=== PATIENT | male | born 1995 | race Hispanic/Latino ===

== ENCOUNTER 2018-12-10 08:58 | Emergency (ER) | payer OTHER ==
--- NOTE | 2018-12-10 10:14 | EDPHYS ---
Physician Documentation [facility] Name: Gordon Oquendo Age: 23 yrs Sex: Male : 1995 Arrival Date: 12/10/2018 Time: 08:58 Bed 11 Private MD: ED Physician Rob Bernstein HPI: 12/10 10:31 This 23 yrs old Male presents to ER via Ambulatory with complaints of Cough, snw Headache, Pain All Over. 10:31 The patient complains of pain to the forehead. The patient describes the headache as a snw pressure. Onset: The symptoms/episode began/occurred gradually. Severity of symptoms: At its worst the pain was moderate. 10:31 The patient or guardian reports airway noise, cough. Onset: The symptoms/episode snw began/occurred 3 day(s) ago. Severity of symptoms: At their worst the symptoms were moderate. It is unknown whether or not the patient has had similar symptoms in the past. The patient has not recently seen a physician. works outdoors. Historical: - Allergies: 09:02 No Known Allergies; ss - Home Meds: 09:02 None [Active]; ss - PMHx: 09:02 None; ss - PSHx: 09:02 None; ss - Immunization history:: Adult Immunizations up to date. - Social history:: Smoking status: Patient uses tobacco products, smokes one-half pack cigarettes per day. - Ebola Screening: : Patient denies exposure to infectious person Patient denies travel to an Ebola-affected area in the 21 days before illness onset. ROS: 10:29 Eyes: Negative for injury, pain, redness, and discharge. snw 10:29 Neck: Negative for injury, pain, and swelling, Cardiovascular: Negative for chest pain, palpitations, and edema. 10:29 Abdomen/GI: Negative for abdominal pain, nausea, vomiting, diarrhea, and constipation, Back: Negative for injury and pain, : Negative for injury, bleeding, discharge, and swelling, MS/Extremity: Negative for injury and deformity, Skin: Negative for injury, rash, and discoloration, Neuro: Negative for headache, weakness, numbness, tingling, and seizure. 10:29 Constitutional: Positive for body aches, malaise. 10:29 ENT: Positive for sore throat. 10:29 Respiratory: Positive for cough, wheezing. Exam: 10:25 Constitutional: This is a well developed, well nourished patient who is awake, alert, snw and in no acute distress. Head/Face: Normocephalic, atraumatic. Eyes: Pupils equal round and reactive to light, extra-ocular motions intact. Lids and lashes normal. Conjunctiva and sclera are non-icteric and not injected. Cornea within normal limits. Periorbital areas with no swelling, redness, or edema. ENT: Nares patent. No nasal discharge, no septal abnormalities noted. Tympanic membranes are mildly erythematous and external auditory canals are clear. Oropharynx with moderate to severe redness, no swelling, or masses, exudates, or evidence of obstruction, uvula midline. Mucous membranes moist. Neck: Trachea midline, no thyromegaly or masses palpated, and no cervical lymphadenopathy. Supple, full range of motion without nuchal rigidity, or vertebral point tenderness. No Meningismus. Chest/axilla: Normal chest wall appearance and motion. Nontender with no deformity. No lesions are appreciated. Cardiovascular: Regular rate and rhythm with a normal S1 and S2. No gallops, murmurs, or rubs. Normal PMI, no JVD. No pulse deficits. Abdomen/GI: Soft, non-tender, with normal bowel sounds. No distension or tympany. No guarding or rebound. No evidence of tenderness throughout. Back: No spinal tenderness. No costovertebral tenderness. Full range of motion. Skin: Warm, dry with normal turgor. Normal color with no rashes, no lesions, and no evidence of cellulitis. MS/ Extremity: Pulses equal, no cyanosis. Neurovascular intact. Full, normal range of motion. Neuro: Awake and alert, GCS 15, oriented to person, place, time, and situation. Cranial nerves II-XII grossly intact. Motor strength 5/5 in all extremities. Sensory grossly intact. Cerebellar exam normal. Normal gait. Psych: Awake, alert, with orientation to person, place and time. Behavior, mood, and affect are within normal limits. 10:25 Respiratory: mild respiratory distress is noted, Respirations: normal, Breath sounds: bronchial sounds, that are moderate, + upper airway congestion. Vital Signs: 09:02 BP 131 / 76; Pulse 92; Resp 16; Temp 98.5(O); Pulse Ox 97% on R/A; Weight 81.65 kg; ss Height 5 ft. 9 in. (175.26 cm); Pain 11/07; 09:02 Body Mass Index 26.58 (81.65 kg, 175.26 cm) ss MDM: 10:08 Patient medically screened. snw 12/10 09:04 Order name: Flu; Complete Time: 10:09 ss 12/10 09:04 Order name: Strep; Complete Time: 10: ss 12/10 09:31 Order name: Throat Culture EDMS Administered Medications: 10:18 Drug: Tussionex Pennkinetic ER 5 ml Route: PO; iw 10:18 Drug: predniSONE 40 mg Route: PO; iw 10:18 Drug: Pepcid 20 mg Route: PO; iw Disposition: 10:40 Co-signature as Attending Physician, Rob Bernstein MD. ma2 Disposition: 12/10/18 10:13 Discharged to Home. Impression: Acute bronchitis. - Condition is Stable. - Discharge Instructions: Acute Bronchitis, Adult, Smoking Hazards, Cough, Adult, Rehydration, Adult. - Prescriptions for Prednisone 20 mg Oral Tablet - take 2 tablet by ORAL route once daily for 5 days; 10 tablet. Albuterol Sulfate 90 mcg/actuation - inhale 1-2 puff by INHALATION route every 4-6 hours; 1 Inhaler. Pepcid 20 mg Oral Tablet - take 1 tablet by ORAL route once daily for 10 days; 10 tablet. - Work release form, Medication Reconciliation Form, Thank You Letter, Antibiotic Education, Prescription Opioid Use form. - Follow up: Private Physician; When: 2 - 3 days; Reason: Recheck today's complaints, Continuance of care, Re-evaluation by your physician. Follow up: Emergency Department; When: As needed; Reason: Worsening of condition. Signatures: Dispatcher [employer] EDGA Autumn Ely FNP-C LOMBARDI DEVELOPER-Brandynw Patricia Rosenbaum RN RN iw Smirch, Shelby, RN RN ss Alzahri, Mohammad, MD MD ma2 Corrections: (The following items were deleted from the chart) 10:29 10:13 12/10/2018 10:13 Discharged to Home. Impression: Acute bronchitis. Condition is iw Stable. Forms are Medication Reconciliation Form, Thank You Letter, Antibiotic Education, Prescription Opioid Use. Follow up: Private Physician; When: 2 - 3 days; Reason: Recheck today's complaints, Continuance of care, Re-evaluation by your physician. Follow up: Emergency Department; When: As needed; Reason: Worsening of condition. snw 10:31 10:25 Constitutional: This is a well developed, well nourished patient who is awake, snw alert, and in no acute distress. Head/Face: Normocephalic, atraumatic. Eyes: Pupils equal round and reactive to light, extra-ocular motions intact. Lids and lashes normal. Conjunctiva and sclera are non-icteric and not injected. Cornea within normal limits. Periorbital areas with no swelling, redness, or edema. ENT: Nares patent. No nasal discharge, no septal abnormalities noted. Tympanic membranes are normal and external auditory canals are clear. Oropharynx with no redness, swelling, or masses, exudates, or evidence of obstruction, uvula midline. Mucous membranes moist. Neck: Trachea midline, no thyromegaly or masses palpated, and no cervical lymphadenopathy. Supple, full range of motion without nuchal rigidity, or vertebral point tenderness. No Meningismus. Chest/axilla: Normal chest wall appearance and motion. Nontender with no deformity. No lesions are appreciated. Cardiovascular: Regular rate and rhythm with a normal S1 and S2. No gallops, murmurs, or rubs. Normal PMI, no JVD. No pulse deficits. Abdomen/GI: Soft, non-tender, with normal bowel sounds. No distension or tympany. No guarding or rebound. No evidence of tenderness throughout. Back: No spinal tenderness. No costovertebral tenderness. Full range of motion. Skin: Warm, dry with normal turgor. Normal color with no rashes, no lesions, and no evidence of cellulitis. MS/ Extremity: Pulses equal, no cyanosis. Neurovascular intact. Full, normal range of motion. Neuro: Awake and alert, GCS 15, oriented to person, place, time, and situation. Cranial nerves II-XII grossly intact. Motor strength 5/5 in all extremities. Sensory grossly intact. Cerebellar exam normal. Normal gait. Psych: Awake, alert, with orientation to person, place and time. Behavior, mood, and affect are within normal limits. snw
--- NOTE | 2018-12-10 10:14 | ER ---
Nurse's Notes [facility] Name: Gordon Oquendo Age: 23 yrs Sex: Male : 1995 Arrival Date: 12/10/2018 Time: 08:58 Bed 11 Private MD: Diagnosis: Acute bronchitis Presentation: 12/10 09:01 Presenting complaint: Patient states: "I have a bad headache, my whole body is aching, ss I have cough congestion and spitting up.". Transition of care: patient was not received from another setting of care. Onset of symptoms was December 07, 2018. Risk Assessment: Do you want to hurt yourself or someone else? Patient reports no desire to harm self or others. Initial Sepsis Screen: Does the patient meet any 2 criteria? No. Patient's initial sepsis screen is negative. Does the patient have a suspected source of infection? No. Patient's initial sepsis screen is negative. Care prior to arrival: None. 09:01 Method Of Arrival: Ambulatory ss 09:01 Acuity: ERNESTO 4 ss Historical: - Allergies: 09:02 No Known Allergies; ss - Home Meds: 09:02 None [Active]; ss - PMHx: 09:02 None; ss - PSHx: 09:02 None; ss - Immunization history:: Adult Immunizations up to date. - Social history:: Smoking status: Patient uses tobacco products, smokes one-half pack cigarettes per day. - Ebola Screening: : Patient denies exposure to infectious person Patient denies travel to an Ebola-affected area in the 21 days before illness onset. Screenin:10 Abuse screen: Denies threats or abuse. Denies injuries from another. Nutritional ss screening: No deficits noted. Tuberculosis screening: Never had TB. Fall Risk None identified. Assessment: 09:10 General: Appears uncomfortable, Behavior is calm, cooperative, Reports feeling ill for ss 12-24 hours. Pain: Complains of pain in general body aches, generalized headache Pain currently is 8 out of 10 on a pain scale. Quality of pain is described as aching. Neuro: Level of Consciousness is awake, alert, obeys commands, Oriented to person, place, time, situation. Cardiovascular: Capillary refill < 3 seconds is brisk in bilateral fingers. Respiratory: Airway is patent Respiratory effort is even, unlabored, Respiratory pattern is regular, symmetrical. GI: Patient currently denies abdominal pain. : No signs and/or symptoms were reported regarding the genitourinary system. Denies burning with urination, urinary frequency. EENT: Nares are clear Oral mucosa is moist. Derm: Skin is intact, is healthy with good turgor, Skin is dry, Skin is pink, warm \\T\\ dry. normal. Musculoskeletal: Circulation, motion, and sensation intact. Range of motion: intact in all extremities, Swelling absent. 10:20 Reassessment: Patient appears in no apparent distress at this time. Patient and/or iw family updated on plan of care and expected duration. Pain level reassessed. Patient is alert, oriented x 3, equal unlabored respirations, skin warm/dry/pink. Vital Signs: 09:02 BP 131 / 76; Pulse 92; Resp 16; Temp 98.5(O); Pulse Ox 97% on R/A; Weight 81.65 kg; ss Height 5 ft. 9 in. (175.26 cm); Pain 8/10; 09:02 Body Mass Index 26.58 (81.65 kg, 175.26 cm) ED Course: 08:58 Patient arrived in ED. as 09:02 Triage completed. ss 09:02 Arm band placed on right wrist. ss 09:10 Patient has correct armband on for positive identification. Bed in low position. Call ss light in reach. 10:05 Betty Temple, LUCIANO is Primary Nurse. ss 10:07 Autumn Ely FNP-C is PHCP. snw 10:07 Rob Bernstein MD is Attending Physician. snw Administered Medications: 10:18 Drug: Tussionex Pennkinetic ER 5 ml Route: PO; iw 10:18 Drug: predniSONE 40 mg Route: PO; iw 10:18 Drug: Pepcid 20 mg Route: PO; iw Outcome: 10:13 Discharge ordered by . snw 10:29 Patient left the ED. Signatures: Autumn Ely FNP-C FNP-Mar Alonso Irene, RN RN Betty Temple RN RN
[2018-12-10] MEDS ORDERED: HYDROCODONE/CHLORPHEN 5 ML/OSYR ONE (10:16)
[2018-12-10] MEDS ORDERED: predniSONE 20 MG TAB ONE (10:17)
[2018-12-10] MEDS ORDERED: FAMOTIDINE 20 MG TAB ONE (10:17)
[2018-12-10 10:36] VITALS: BP 131/76; TEMP 98.5; O2SAT 97
== END 2018-12-10 10:29 | disposition home or self-care (01) ==
LOC: ER 08:58
DX: J20.9 Acute bronchitis, unspecified (principal); F17.210 Nicotine dependence, cigarettes, uncomplicated
CPT/HCPCS: 87070; 87081; 87804 ×2; 99282; J7512

== ENCOUNTER 2019-05-24 17:41 | Emergency (ER) | payer OTHER ==
[2019-05-24] MEDS ORDERED: IBUPROFEN 200 MG TAB PO ONE (17:58)
--- NOTE | 2019-05-24 18:59 | ER ---
Nurse's Notes [facility] Name: Gordon Oquendo Age: 23 yrs Sex: Male : 1995 Arrival Date: 05/24/2019 Time: 17:49 Bed 27 Private MD: Diagnosis: Influenza due to identified novel influenza A virus Presentation: 05/24 17:49 Presenting complaint: Chills, nonproductive cough, sinus congestion, headache, and hb fever x 4 days. TMAX 100.4. Denies N/V/D. Transition of care: patient was not received from another setting of care. Onset of symptoms was May 20, 2019. Risk Assessment: Do you want to hurt yourself or someone else? Patient reports no desire to harm self or others. Care prior to arrival: Medication(s) given: PCN, Tylenol at 1700. 17:49 Method Of Arrival: Ambulatory hb 17:49 Acuity: ERNESTO 3 hb 17:52 Initial Sepsis Screen: Does the patient meet any 2 criteria? Temp <36.0*C (96.8*F)) or hb > 38.3*C (100.9*F). HR > 90 bpm. Yes Does the patient have a suspected source of infection? No. Patient's initial sepsis screen is negative. Historical: - Allergies: 17:50 No Known Allergies; hb - Home Meds: 17:50 None [Active]; hb - PMHx: 17:50 None; hb - PSHx: 17:50 None; hb - Immunization history:: Adult Immunizations up to date. - Coronavirus screen:: The patient has NOT traveled to [place] in the past 14 days. The patient has NOT had contact with known/suspected case of Coronavirus? Proceed with normal triage procedures. - Social history:: Patient/guardian denies using alcohol, street drugs, The patient lives with family, Smoking status: Patient reports the use of cigarette tobacco products, smokes one-half pack cigarettes per day. - Family history:: not pertinent. - Ebola Screening: : No symptoms or risks identified at this time. Screenin:45 Abuse screen: Denies threats or abuse. Denies injuries from another. Nutritional wh screening: No deficits noted. Tuberculosis screening: No symptoms or risk factors identified. Fall Risk None identified. Assessment: 18:45 General: Appears in no apparent distress. Behavior is calm, cooperative, appropriate wh for age. Pain: Complains of pain in generalized body pain. Neuro: Level of Consciousness is awake, alert, obeys commands, Oriented to person, place, time, situation, Appropriate for age. Cardiovascular: Heart tones S1 S2. Respiratory: Reports cough that is congestion Airway is patent Respiratory effort is even, unlabored, Respiratory pattern is regular, symmetrical, Breath sounds are clear bilaterally. GI: Abdomen is flat, non-distended. : No signs and/or symptoms were reported regarding the genitourinary system. EENT: Throat is pink. Derm: Skin is intact, is healthy with good turgor, Skin is pink, warm \T\ dry. normal. Musculoskeletal: Circulation, motion, and sensation intact. Vital Signs: 17:50 BP 114 / 59; Pulse 112; Resp 16; Temp 104.5; Pulse Ox 98% on R/A; Weight 81.65 kg; hb Height 5 ft. 9 in. (175.26 cm); Pain 7/10; 19:24 BP 113 / 69; Pulse 83; Resp 18; Temp 99.8; Pulse Ox 100% ; wh 17:50 Body Mass Index 26.58 (81.65 kg, 175.26 cm) hb ED Course: 17:49 Patient arrived in ED. mr 17:50 Triage completed. hb 17:50 Arm band placed on. hb 18:11 Strep Sent. hb 18:11 Flu Sent. hb 18:34 Tin Aviles is Primary Nurse. wh 18:36 Rob Bernstein MD is Attending Physician. ma2 18:45 Patient has correct armband on for positive identification. Bed in low position. Call light in reach. Side rails up X 1. Pulse ox on. NIBP on. 19:27 No provider procedures requiring assistance completed. Patient did not have IV access during this emergency room visit. Administered Medications: 17:57 Drug: Motrin 600 mg Route: PO; hb 19:28 Follow up: Response: No adverse reaction; Temperature is decreased wh 19:12 Drug: Tamiflu 75 mg Route: PO; wh 19:28 Follow up: Response: No adverse reaction 19:12 Drug: TORadol 60 mg Route: IM; Site: right gluteus; wh 19:27 Follow up: Response: No adverse reaction; Pain is decreased Outcome: 18:56 Discharge ordered by MD. bernal 19:27 Discharged to home ambulatory, with family. 19:27 Condition: stable 19:27 Discharge instructions given to patient, family, Instructed on discharge instructions, follow up and referral plans. no drinking with medication, no driving heavy equipment, medication usage, POC Demonstrated understanding of instructions, follow-up care, medications, POC Prescriptions given X 2. 19:28 Patient left the ED. Signatures: Silvia Gerard Heather, RN RN hb Habalo, Winsy Rob Bernstein MD MD ma2 Corrections: (The following items were deleted from the chart) 17:52 17:49 Acuity: ERNESTO 4 hb hb
--- NOTE | 2019-05-24 19:00 | EDPHYS ---
Physician Documentation [facility] Name: Gordon Oquendo Age: 23 yrs Sex: Male : 1995 Arrival Date: 05/24/2019 Time: 17:49 Bed 27 Private MD: ED Physician Rob Bernstein HPI: 05/24 18:55 This 23 yrs old Male presents to ER via Ambulatory with complaints of Flu ma2 Symptoms. 18:55 Onset: The symptoms/episode began/occurred gradually, 2 day(s) ago. Associated signs ma2 and symptoms: Pertinent negatives: altered mental status, chest pain, chills, diarrhea. Severity of symptoms: At their worst the symptoms were moderate in the emergency department the symptoms are unchanged. Historical: - Allergies: 17:50 No Known Allergies; hb - Home Meds: 17:50 None [Active]; hb - PMHx: 17:50 None; hb - PSHx: 17:50 None; hb - Immunization history:: Adult Immunizations up to date. - Coronavirus screen:: The patient has NOT traveled to [place] in the past 14 days. The patient has NOT had contact with known/suspected case of Coronavirus? Proceed with normal triage procedures. - Social history:: Patient/guardian denies using alcohol, street drugs, The patient lives with family, Smoking status: Patient reports the use of cigarette tobacco products, smokes one-half pack cigarettes per day. - Family history:: not pertinent. - Ebola Screening: : No symptoms or risks identified at this time. ROS: 18:55 Constitutional: Negative for fever, chills, and weight loss. ma2 18:55 All other systems are negative. Exam: 18:55 Constitutional: This is a well developed, well nourished patient who is awake, alert, ma2 and in no acute distress. Head/Face: Normocephalic, atraumatic. Eyes: Pupils equal round and reactive to light, extra-ocular motions intact. Lids and lashes normal. Conjunctiva and sclera are non-icteric and not injected. Cornea within normal limits. Periorbital areas with no swelling, redness, or edema. ENT: Nares patent. No nasal discharge, no septal abnormalities noted. Tympanic membranes are normal and external auditory canals are clear. Oropharynx with no redness, swelling, or masses, exudates, or evidence of obstruction, uvula midline. Mucous membranes moist. Neck: Trachea midline, no thyromegaly or masses palpated, and no cervical lymphadenopathy. Supple, full range of motion without nuchal rigidity, or vertebral point tenderness. No Meningismus. Chest/axilla: Normal chest wall appearance and motion. Nontender with no deformity. No lesions are appreciated. Cardiovascular: Regular rate and rhythm with a normal S1 and S2. No gallops, murmurs, or rubs. Normal PMI, no JVD. No pulse deficits. Respiratory: Lungs have equal breath sounds bilaterally, clear to auscultation and percussion. No rales, rhonchi or wheezes noted. No increased work of breathing, no retractions or nasal flaring. Abdomen/GI: Soft, non-tender, with normal bowel sounds. No distension or tympany. No guarding or rebound. No evidence of tenderness throughout. Vital Signs: 17:50 BP 114 / 59; Pulse 112; Resp 16; Temp 104.5; Pulse Ox 98% on R/A; Weight 81.65 kg; hb Height 5 ft. 9 in. (175.26 cm); Pain 7/10; 19:24 BP 113 / 69; Pulse 83; Resp 18; Temp 99.8; Pulse Ox 100% ; wh 17:50 Body Mass Index 26.58 (81.65 kg, 175.26 cm) hb MDM: 18:36 Patient medically screened. ma2 18:55 Differential diagnosis: bacterial infection, URI, bronchitis. Data reviewed: vital ma2 signs, nurses notes. Counseling: I had a detailed discussion with the patient and/or guardian regarding: the historical points, exam findings, and any diagnostic results supporting the discharge/admit diagnosis, the presence of at least one elevated blood pressure reading (>120/80) during this emergency department visit, the need for outpatient follow up. Response to treatment: the patient's symptoms have mildly improved after treatment. 05/24 17:53 Order name: Flu hb 05/24 17:53 Order name: Strep hb 05/24 18:24 Order name: Influenza Screen (A ; Complete Time: 18:36 EDMS 05/24 18:24 Order name: Group A Streptococcus Rapid Sc; Complete Time: 18:36 EDMS Administered Medications: 17:57 Drug: Motrin 600 mg Route: PO; 19:28 Follow up: Response: No adverse reaction; Temperature is decreased 19:12 Drug: Tamiflu 75 mg Route: PO; 19:28 Follow up: Response: No adverse reaction 19:12 Drug: TORadol 60 mg Route: IM; Site: right gluteus; 19:27 Follow up: Response: No adverse reaction; Pain is decreased Disposition: 05/24/19 18:56 Discharged to Home. Impression: Influenza due to identified novel influenza A virus. - Condition is Stable. - Discharge Instructions: Influenza, Adult, Form - Excuse from Work, School, or Physical Activity. - Prescriptions for Tylenol- Codeine #3 300-30 mg Oral Tablet - take 2 tablet by ORAL route every 6 hours As needed; 30 tablet. Tamiflu 75 mg Oral Capsule - take 1 tablet by ORAL route every 12 hours for 5 days; 10 tablet. - Work release form, Medication Reconciliation Form, Thank You Letter, Antibiotic Education, Prescription Opioid Use form. - Follow up: Private Physician; When: Tomorrow; Reason: Continuance of care. Signatures: Dispatcher [employer] EDKimi Engel, RN RN kb Aviles, Tin Rob Bernstein MD MD ma2 Corrections: (The following items were deleted from the chart) 19:28 18:56 05/24/2019 18:56 Discharged to Home. Impression: Influenza due to identified novel influenza A virus. Condition is Stable. Forms are Medication Reconciliation Form, Thank You Letter, Antibiotic Education, Prescription Opioid Use. Follow up: Private Physician; When: Tomorrow; Reason: Continuance of care. ma2
[2019-05-24] MEDS ORDERED: OSELTAMIVIR 75 MG CAP ONE (19:10)
[2019-05-24] MEDS ORDERED: KETOROLAC 30 MG/ML INJ ONE (19:11)
[2019-05-24 19:48] VITALS: BP 113/69; TEMP 99.8; O2SAT 100
== END 2019-05-24 19:28 | disposition home or self-care (01) ==
LOC: ER 17:41
DX: J10.1 Influenza due to other identified influenza virus with other respiratory manifestations (principal); F17.210 Nicotine dependence, cigarettes, uncomplicated
CPT/HCPCS: 87070; 87081; 87804; 96372; 99284

== ENCOUNTER 2021-06-13 11:42 | Emergency (ER) | payer SELFPAY ==
[2021-06-13] MEDS ORDERED: IBUPROFEN 200 MG TAB PO ONE (11:57)
[2021-06-13] MEDS ORDERED: IBUPROFEN 400 MG TAB ONE (11:57)
[2021-06-13 12:13] LABS: Hematocrit 45.2 % (39.6-49.0); MPV 9.6 fL (7.6-11.3); RBC Red Blood Cell Count 4.88 M/uL (4.33-5.43)
[2021-06-13 13:05] LABS: BUN Blood Urea Nitrogen 13 mg/dL (7-18); Bicarbonate 26 mmol/L (21-32); Glucose Level 113 mg/dL (74-106); Sodium Level 138 mmol/L (136-145)
--- NOTE | 2021-06-13 13:45 | ER ---
Nurse's Notes [facility] Name: Gordon Oquendo Age: 26 yrs Sex: Male : 1995 Arrival Date: 06/13/2021 Time: 11:45 Bed 18 Private MD: Diagnosis: Headache;Myalgia Presentation: 06/13 11:50 Chief complaint: Patient states: "I had a headache that started suddenly.". Coronavirus jd3 screen: At this time, the client does not indicate any symptoms associated with coronavirus-19. Ebola Screen: No symptoms or risks identified at this time. Initial Sepsis Screen: Does the patient meet any 2 criteria? No. Patient's initial sepsis screen is negative. Does the patient have a suspected source of infection? No. Patient's initial sepsis screen is negative. Risk Assessment: Do you want to hurt yourself or someone else? Patient reports no desire to harm self or others. Onset of symptoms was June 13, 2021. 11:50 Method Of Arrival: Ambulatory jd3 11:50 Acuity: ERNESTO 3 jd3 Historical: - Allergies: 11:50 No Known Allergies; jd3 - Home Meds: 11:50 None [Active]; jd3 - PMHx: 11:50 None; jd3 - PSHx: 11:50 None; jd3 - Immunization history:: Adult Immunizations up to date, Client reports receiving the 2nd dose of the Covid vaccine, Flu vaccine is up to date. - Social history:: Smoking status: Patient reports the use of cigarette tobacco products, denies chronic smoking, but will smoke occasionally. Screenin:05 Abuse screen: Denies threats or abuse. Denies injuries from another. Nutritional ww screening: No deficits noted. Tuberculosis screening: No symptoms or risk factors identified. Fall Risk None identified. Assessment: 12:05 General: Appears in no apparent distress. Behavior is calm, cooperative. Pain: ww Complains of pain in face, left parietal area, right parietal area, occipital area and base of the skull. Neuro: Level of Consciousness is awake, alert, obeys commands, Oriented to person, place, time, situation, Moves all extremities. Gait is steady, Speech is normal, Facial symmetry appears normal, Reports headache weakness. Cardiovascular: Capillary refill < 3 seconds Patient's skin is warm and dry. Chest pain is denied. Respiratory: Airway is patent Respiratory effort is even, unlabored, Respiratory pattern is regular, symmetrical. GI: No signs and/or symptoms were reported involving the gastrointestinal system. : No signs and/or symptoms were reported regarding the genitourinary system. EENT: No signs and/or symptoms were reported regarding the EENT system. Sclera/Cornea are clear in outer aspect of conjuctiva of right eye, iris of right eye, inner aspect of conjuctiva of right eye, outer aspect of conjuctiva of left eye, iris of left eye and inner aspect of conjunctiva of left eye. Derm: No signs and/or symptoms reported regarding the dermatologic system. Skin is intact, is healthy with good turgor, Skin is pink, warm \\T\\ dry. 13:24 Reassessment: Patient appears in no apparent distress at this time. No changes from ww previously documented assessment. Patient and/or family updated on plan of care and expected duration. Pain level reassessed. Patient is alert, oriented x 3, equal unlabored respirations, skin warm/dry/pink. Patient states feeling better. Vital Signs: 11:51 BP 122 / 71; Pulse 100; Resp 18 S; Temp 98.8(TE); Pulse Ox 98% on R/A; Weight 90.72 kg jd3 (R); Height 5 ft. 9 in. (175.26 cm) (R); Pain 4/10; 12:30 BP 115 / 7; Pulse 86; Resp 16; Pulse Ox 98% ; ww 13:00 BP 114 / 57; Pulse 84; Resp 17; Pulse Ox 97% on R/A; ww 11:51 Body Mass Index 29.53 (90.72 kg, 175.26 cm) jd3 ED Course: 11:45 Patient arrived in ED. mr 11:46 Kade Frederick DO is Attending Physician. ms3 11:50 Triage completed. jd3 11:51 Arm band placed on. jd3 11:52 Rosemarie Estrada, RN is Primary Nurse. ww 12:05 Patient has correct armband on for positive identification. Bed in low position. Call ww light in reach. Side rails up X 1. Warm blanket given. 12:15 Inserted saline lock: 20 gauge in left antecubital area, using aseptic technique. Blood ww collected. 12:28 Warm blanket given. Pulse ox on. NIBP on. 5 12:29 by ED staff. 5 13:44 Jose Jacobo MD is Referral Physician. ms3 14:09 No provider procedures requiring assistance completed. IV discontinued, bleeding ww controlled, No redness/swelling at site. Pressure dressing applied. Administered Medications: 12:05 Drug: Ibuprofen 600 mg Route: PO; ww Outcome: 13:45 Discharge ordered by . ms3 14:10 Patient left the ED. ww Signatures: Silvia Gerard Maria 5 Jack Aragon, RN RN jd3 Kade Frederick DO DO ms3 Rosemarie Estrada, RN RN ww
--- NOTE | 2021-06-13 13:45 | EDPHYS ---
Physician Documentation [facility] Name: Gordon Oquendo Age: 26 yrs Sex: Male : 1995 Arrival Date: 06/13/2021 Time: 11:45 Bed 18 Private MD: ED Physician Kade Frederick HPI: 06/13 11:51 This 26 yrs old Male presents to ER via Ambulatory with complaints of ms3 Headache, Neck Problem, Shoulder Pain, Weakness, Dizziness. 11:51 The patient complains of pain to the right occipital area. The patient describes the ms3 headache as aching. Onset: The symptoms/episode began/occurred today. Associated signs and symptoms: Pertinent negatives: fever, nausea, rash, vomiting. Severity of symptoms: At its worst the pain was moderate, in the emergency department the pain is unchanged. The symptoms are alleviated by nothing. the symptoms are aggravated by nothing. 26-year-old male with no past medical history presents for headache, neck tightness, shoulder tightness that began today while at work. Patient denies alleviating or inciting factors. Patient states pain is located in the posterior portion of his head he rates it a 5/10. Patient denies fevers, nausea, vomiting, photophobia. Historical: - Allergies: 11:50 No Known Allergies; jd3 - Home Meds: 11:50 None [Active]; jd3 - PMHx: 11:50 None; jd3 - PSHx: 11:50 None; jd3 - Immunization history:: Adult Immunizations up to date, Client reports receiving the 2nd dose of the Covid vaccine, Flu vaccine is up to date. - Social history:: Smoking status: Patient reports the use of cigarette tobacco products, denies chronic smoking, but will smoke occasionally. ROS: 11:51 Eyes: Negative for injury, pain, redness, and discharge, Cardiovascular: Negative for ms3 chest pain, and palpitations. Respiratory: Negative for shortness of breath, cough, wheezing, and pleuritic chest pain, Abdomen/GI: Negative for abdominal pain, nausea, vomiting, diarrhea, and constipation, Back: Negative for injury and pain, Skin: Negative for injury, rash, and discoloration. 11:51 Constitutional: Positive for chills, Negative for fever. 11:51 Neck: Positive for Tightness. 11:51 Neuro: Positive for headache. 11:51 All other systems are negative. Exam: 11:53 Constitutional: This is a well developed, well nourished patient who is awake, alert, ms3 and in no acute distress. Head/Face: Normocephalic, atraumatic. Eyes: Pupils equal round and reactive to light, extra-ocular motions intact. Lids and lashes normal. Conjunctiva and sclera are non-icteric and not injected. Periorbital areas with no swelling, redness, or edema. ENT: Nares patent. No nasal discharge, no septal abnormalities noted. Tympanic membranes are normal and external auditory canals are clear. Oropharynx with no redness, swelling, or masses, exudates, or evidence of obstruction, uvula midline. Mucous membranes moist. Neck: Trachea midline, no cervical lymphadenopathy. Supple, full range of motion without nuchal rigidity, or vertebral point tenderness. No Meningismus. Chest/axilla: Normal chest wall appearance and motion. Nontender with no deformity. Cardiovascular: Regular rate and rhythm with a normal S1 and S2. No gallops, murmurs, or rubs. Normal PMI, no JVD. No pulse deficits. Respiratory: Lungs have equal breath sounds bilaterally, clear to auscultation and percussion. No rales, rhonchi or wheezes noted. No increased work of breathing, no retractions or nasal flaring. Abdomen/GI: Soft, non-tender, with normal bowel sounds. No distension or tympany. No guarding or rebound. No evidence of tenderness throughout. Back: No spinal tenderness. No costovertebral tenderness. Full range of motion. Skin: Warm, dry with normal turgor. Normal color with no rashes, no lesions, and no evidence of cellulitis. MS/ Extremity: Pulses equal, no cyanosis. Neurovascular intact. Full, normal range of motion. Neuro: Awake and alert, GCS 15, oriented to person, place, time, and situation. Cranial nerves II-XII grossly intact. Motor strength 5/5 in all extremities. Sensory grossly intact. Cerebellar exam normal. Normal gait. Vital Signs: 11:51 BP 122 / 71; Pulse 100; Resp 18 S; Temp 98.8(TE); Pulse Ox 98% on R/A; Weight 90.72 kg jd3 (R); Height 5 ft. 9 in. (175.26 cm) (R); Pain 4/10; 12:30 BP 115 / 7; Pulse 86; Resp 16; Pulse Ox 98% ; ww 13:00 BP 114 / 57; Pulse 84; Resp 17; Pulse Ox 97% on R/A; ww 11:51 Body Mass Index 29.53 (90.72 kg, 175.26 cm) jd3 MDM: 11:54 Patient medically screened. ms3 13:45 Differential diagnosis: Viral illness vs dehydration vs electrolyte abnormality vs ms3 anemia. Data reviewed: vital signs, nurses notes, lab test result(s). Counseling: I had a detailed discussion with the patient and/or guardian regarding: the historical points, exam findings, and any diagnostic results supporting the discharge/admit diagnosis, lab results, the need for outpatient follow up, to return to the emergency department if symptoms worsen or persist or if there are any questions or concerns that arise at home. ED course: Discussed labs and physical exam findings with patient. Patient to follow-up with primary care physician in 2 to 3 days. Patient understands and agrees with plan. All questions were answered. Return precautions discussed include worsening symptoms, or any other concerns. On reevaluation patient is improved, alert and oriented x4, in no apparent distress, nontoxic appearing, ambulatory in emergency department, speaking full sentences.. 06/13 11:51 Order name: CBC w/o diff; Complete Time: 13:41 ms3 06/13 11:51 Order name: BMP; Complete Time: 13:41 ms3 Administered Medications: 12:05 Drug: Ibuprofen 600 mg Route: PO; ww Disposition Summary: 06/13/21 13:45 Discharge Ordered Location: Home ms3 Problem: new ms3 Symptoms: have improved ms3 Condition: Stable ms3 Diagnosis - Headache ms3 - Myalgia ms3 Followup: ms3 - With: Jose Jacobo MD - When: 2 - 3 days - Reason: Recheck today's complaints Discharge Instructions: - Discharge Summary Sheet ms3 - General Headache Without Cause ms3 - Form - Return To Work ms3 Forms: - Medication Reconciliation Form ms3 - Thank You Letter ms3 - Work release form jr8 - Antibiotic Education ms3 - Prescription Opioid Use ms3 Signatures: Dispatcher [employer] Jack Santacruz RN RN jd3 Kade Frederick DO DO ms3 Rosemarie Estrada, RN RN ww
[2021-06-13 14:28] VITALS: TEMP 98.8
[2021-06-13 14:31] VITALS: BP 114/57; O2SAT 97
== END 2021-06-13 14:10 | disposition home or self-care (01) ==
LOC: ER 11:42
DX: R51.9 Headache, unspecified (principal); M79.10 Myalgia, unspecified site; M54.2 Cervicalgia; M25.519 Pain in unspecified shoulder; R53.1 Weakness; R42 Dizziness and giddiness
CPT/HCPCS: 36415; 80048; 85027; 99284

== ENCOUNTER 2021-06-14 10:05 | Emergency (ER) | payer SELFPAY ==
[2021-06-14] MEDS ORDERED: ONDANSETRON 4 MG (ODT) TAB ONE (10:24)
--- NOTE | 2021-06-14 12:08 | ER ---
Nurse's Notes [facility] Name: Gordon Oquendo Age: 26 yrs Sex: Male : 1995 Arrival Date: 06/14/2021 Time: 10:09 Bed 23 Private MD: Diagnosis: Nausea with vomiting, unspecified;Diarrhea, unspecified;Muscle weakness (generalized) Presentation: 06/14 10:18 Chief complaint: Patient states: was seen here yesterday for nausea/vomiting/diarrhea. aa5 Pt states he has been drinking Pedialyte to stay hydrated. 10:18 Coronavirus screen: diarrhea, vomiting. Ebola Screen: No symptoms or risks identified aa5 at this time. Initial Sepsis Screen: Does the patient meet any 2 criteria? No. Patient's initial sepsis screen is negative. Does the patient have a suspected source of infection? No. Patient's initial sepsis screen is negative. Risk Assessment: Do you want to hurt yourself or someone else? Patient reports no desire to harm self or others. Onset of symptoms was May 2020. 10:18 Acuity: ERNESTO 5 aa5 10:18 Method Of Arrival: Ambulatory aa5 Triage Assessment: 10:56 GI: Reports diarrhea, nausea, vomiting. tw2 Historical: - Allergies: 10:24 No Known Allergies; aa5 - Home Meds: 10:24 None [Active]; aa5 - PMHx: 10:24 None; aa5 - PSHx: 10:24 None; aa5 - Immunization history:: Adult Immunizations. - Social history:: Smoking status: Patient reports the use of cigarette tobacco products. Screenin:23 Abuse screen: Denies threats or abuse. Nutritional screening: No deficits noted. tw2 Tuberculosis screening: No symptoms or risk factors identified. Fall Risk None identified. Assessment: 10:23 General: Appears in no apparent distress. well groomed, Behavior is calm, cooperative, tw2 appropriate for age. Pain: Denies pain. GI: pt reports n/v/d. was here yesterday for same complaint. medicated per ordered and PO challenge pending. 11:37 General: Appears in no apparent distress. comfortable, Behavior is calm, cooperative, ld1 appropriate for age. Pain: Denies pain. Neuro: Level of Consciousness is awake, alert, obeys commands, Oriented to person, place, time, situation. Respiratory: Airway is patent Respiratory effort is even, unlabored. GI:. Vital Signs: 10:18 BP 109 / 70; Pulse 111; Resp 18 S; Temp 98.8(TE); Pulse Ox 98% on R/A; aa5 11:37 BP 114 / 77; Pulse 106; Resp 18; Pulse Ox 99% on R/A; Pain 0/10; ld1 ED Course: 10:09 Patient arrived in ED. ds1 10:10 Kade Frederick DO is Attending Physician. ms3 10:18 Arm band placed on. aa5 10:23 Noelle Shaikh, RN is Primary Nurse. tw2 10:23 Bed in low position. Call light in reach. Pulse ox on. NIBP on. tw2 10:25 Triage completed. aa5 12:19 No provider procedures requiring assistance completed. Patient did not have IV access ld1 during this emergency room visit. Administered Medications: 10:25 Drug: Ondansetron 4 mg Route: PO; aa5 10:53 Follow up: Response: No adverse reaction; Nausea is decreased ld1 Outcome: 12:07 Discharge ordered by MD. ms3 12:19 Discharged to home ambulatory. ld1 12:19 Condition: stable 12:19 Discharge instructions given to patient, Instructed on discharge instructions, follow up and referral plans. medication usage, Demonstrated understanding of instructions, follow-up care, medications. 12:19 Patient left the ED. ld1 Signatures: Maria Antonia Lemons ds1 Elizabeth Briceño RN RN aa5 Noelle Shaikh RN RN tw2 Kade Frederick DO DO ms3 Ana Cruz RN RN ld1
--- NOTE | 2021-06-14 12:08 | EDPHYS ---
Physician Documentation [facility] Name: Gordon Oquendo Age: 26 yrs Sex: Male : 1995 Arrival Date: 06/14/2021 Time: 10:09 Bed 23 Private MD: ED Physician Kade Frederick HPI: 06/14 10:18 This 26 yrs old Male presents to ER via Unassigned with complaints of ms3 Nausea/Vomiting/Diarrhea. 10:18 The patient presents to the emergency department with nausea, vomiting, 1 times since ms3 last night, diarrhea, multiple. Onset: The symptoms/episode began/occurred acutely, yesterday. Possible causes: sick contacts, Daughter. The symptoms are aggravated by nothing. The symptoms are alleviated by nothing. Associated signs and symptoms: Pertinent positives: diarrhea, nausea, vomiting, Pertinent negatives: fever. Severity of symptoms: At their worst the symptoms were moderate in the emergency department the symptoms have improved. 6-year-old male with no past medical history presents for nausea, vomiting, diarrhea that began yesterday. Patient states he was seen in the emergency department yesterday after arriving home started to experience diarrhea. Patient states he then ate a large amount of pizza and began vomiting. Patient denies pain at this time. Patient denies alleviating or inciting factors. Patient denies fevers, chills.. Historical: - Allergies: 10:24 No Known Allergies; aa5 - Home Meds: 10:24 None [Active]; aa5 - PMHx: 10:24 None; aa5 - PSHx: 10:24 None; aa5 - Immunization history:: Adult Immunizations. - Social history:: Smoking status: Patient reports the use of cigarette tobacco products. ROS: 10:39 Constitutional: Negative for fever, and chills. Eyes: Negative for injury, pain, ms3 redness, and discharge, Neck: Negative for injury, pain, and swelling, Cardiovascular: Negative for chest pain, and palpitations. Respiratory: Negative for shortness of breath, cough, wheezing, and pleuritic chest pain, Back: Negative for injury and pain, MS/Extremity: Negative for injury and deformity, Skin: Negative for injury, rash, and discoloration. 10:39 Abdomen/GI: Positive for nausea, vomiting, and diarrhea. 10:39 All other systems are negative. Exam: 10:40 Constitutional: This is a well developed, well nourished patient who is awake, alert, ms3 and in no acute distress. Head/Face: Normocephalic, atraumatic. Eyes: Pupils equal round and reactive to light, extra-ocular motions intact. Lids and lashes normal. Conjunctiva and sclera are non-icteric and not injected. Periorbital areas with no swelling, redness, or edema. ENT: Nares patent. No nasal discharge, no septal abnormalities noted. Tympanic membranes are normal and external auditory canals are clear. Oropharynx with no redness, swelling, or masses, exudates, or evidence of obstruction, uvula midline. Mucous membranes moist. Neck: Trachea midline, no cervical lymphadenopathy. Supple, full range of motion without nuchal rigidity, or vertebral point tenderness. No Meningismus. Chest/axilla: Normal chest wall appearance and motion. Nontender with no deformity. Cardiovascular: Regular rate and rhythm with a normal S1 and S2. No gallops, murmurs, or rubs. Normal PMI, no JVD. No pulse deficits. Respiratory: Lungs have equal breath sounds bilaterally, clear to auscultation and percussion. No rales, rhonchi or wheezes noted. No increased work of breathing, no retractions or nasal flaring. Abdomen/GI: Soft, non-tender, with normal bowel sounds. No distension or tympany. No guarding or rebound. No evidence of tenderness throughout. Skin: Warm, dry with normal turgor. Normal color with no rashes, no lesions, and no evidence of cellulitis. Vital Signs: 10:18 BP 109 / 70; Pulse 111; Resp 18 S; Temp 98.8(TE); Pulse Ox 98% on R/A; aa5 11:37 BP 114 / 77; Pulse 106; Resp 18; Pulse Ox 99% on R/A; Pain 0/10; ld1 MDM: 10:20 Patient medically screened. ms3 12:07 Differential diagnosis: Nonspecific abd pain, gastritis, viral gastroenteritis, ms3 gastroenteritis. Data reviewed: Data reviewed: vital signs, nurses notes. 12:07 ED course: Patient improved after zofran. Patient tolerating po, a/o x4, nad, ms3 non-toxic, ambulatory in ED. Patient to follow up with PMD in 2-3 days. Patient understands/ agrees with plan. All questions answered. Return precautions given.. 06/14 10:18 Order name: PO challenge; Complete Time: 10:53 ms3 Administered Medications: 10:25 Drug: Ondansetron 4 mg Route: PO; aa5 10:53 Follow up: Response: No adverse reaction; Nausea is decreased ld1 Disposition Summary: 06/14/21 12:07 Discharge Ordered Location: Home ms3 Condition: Stable ms3 Diagnosis - Nausea with vomiting, unspecified ms3 - Diarrhea, unspecified ms3 - Muscle weakness (generalized) ms3 Discharge Instructions: - Discharge Summary Sheet tw2 - Diarrhea, Adult ms3 - Nausea and Vomiting, Adult ms3 Forms: - Work release form tw2 - Medication Reconciliation Form ms3 - Thank You Letter ms3 - Antibiotic Education ms3 - Prescription Opioid Use ms3 Prescriptions: - Zofran 4 mg Oral Tablet - take 1 tablet by ORAL route every 12 hours As needed; 20 tablet; Refills: 0, ms3 Product Selection Permitted Signatures: Elizabeth Briceño RN RN aa5 Noelle Shaikh RN RN tw2 Kade Frederick DO DO ms3 Ana Cruz RN ld1 Corrections: (The following items were deleted from the chart) 15:20 15:17 Differential diagnosis: Nonspecific abd pain, gastritis, viral gastroenteritis, ms3 gastroenteritis, ms3 15:20 15:17 Data reviewed: ms3 ms3
[2021-06-14 12:42] VITALS: TEMP 98.8
[2021-06-14 12:43] VITALS: BP 114/77; O2SAT 99
== END 2021-06-14 12:19 | disposition home or self-care (01) ==
LOC: ER 10:05
DX: R19.7 Diarrhea, unspecified (principal); M62.81 Muscle weakness (generalized); Z72.0 Tobacco use
CPT/HCPCS: 99283